=== PATIENT | female | born 1995 | race Caucasian/White ===

== ENCOUNTER 2025-04-30 14:54 | Emergency (ER) | payer OTHER, SELFPAY ==
[2025-04-30 14:59] VITALS: BP 111/77
[2025-04-30 15:16] VITALS: BMI 25.1
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
== END 2025-04-30 16:04 | disposition home or self-care (01) ==
LOC: EMR 14:54
PROVIDERS: EMERGENCY PHYSICIAN Student in an Organized Health Care Education/Training Program
DX: T21.51XA Corrosion of first degree of chest wall, initial encounter (principal); X58.XXXA Exposure to other specified factors, initial encounter; Y93.89 Activity, other specified
CPT/HCPCS: 99283